=== PATIENT | female | born 1955 | race Two or more races ===

== ENCOUNTER 2017-11-25 22:30 | Emergency (ER) | payer MEDICAID, OTHER ==
[2017-11-25 22:39] VITALS: BP 122/73
--- NOTE | 2017-11-25 23:29 | RADIOLOGY REPORT (SQ) ---
EXAM DESCRIPTION: XR ANKLE 2 VIEWS COMPLETED DATE/TME: 11/25/2017 00:00 CLINICAL HISTORY: 62 years Female, r ankle pain COMPARISON: None. Findings: Minimal medial malleolar osteoarthritis. Bones, joints, and soft tissues of the RIGHT XR ANKLE 3 VIEWS appear intact. IMPRESSION: No acute findings.
[2017-11-25] MEDS ORDERED: IBUPROFEN 600 MG TABLET PO ONE (23:52)
--- NOTE | 2017-11-25 23:52 | ER Document Report ---
HPI - HPI Pain Level: 4 Notes: Patient complaining of right ankle pain 2 days patient unsure of any specific injury she may have twisted it wrong. He should not reports that she is able to ambulate on the right leg however it causes her moderate discomfort. - REPRODUCTIVE Reproductive: DENIES: : Past Medical History - General Information source: Patient - Social History Smoking Status: Never Smoker Frequency of alcohol use: None Drug Abuse: None Family History: CAD, DM, Hyperlipidemia Psychiatric Medical History: Reports: Hx Anxiety, Hx Bipolar Disorder, Hx Depression, Hx Schizophrenia Past Surgical History: Reports: Hx Tonsillectomy - Immunizations Immunizations up to date: No Hx Diphtheria, Pertussis, Tetanus Vaccination: No - unknown Vertical Provider Document - CONSTITUTIONAL Notes: PHYSICAL EXAMINATION: GENERAL: Well-appearing, well-nourished and in no acute distress. HEAD: Atraumatic, normocephalic. EYES: Pupils equal round extraocular movements intact, conjunctiva are normal. ENT: Nares patent NECK: Normal range of motion LUNGS: No respiratory distress Musculoskeletal: Normal range of motion, tenderness to palpation over medial aspect of right ankle. Capillary refill less than 3 seconds, normal motor and sensation to area of pain NEUROLOGICAL: Normal speech, normal gait. PSYCH: Normal mood, normal affect. SKIN: Warm, Dry, normal turgor, no rashes or lesions noted. - INFECTION CONTROL TRAVEL OUTSIDE OF THE [place] IN LAST 30 DAYS: No Course - Re-evaluation Re-evalutation: X-ray is negative for any fracture or dislocation. Will place patient in a air cast for comfort, ice and elevate. Patient offered crutches, patient declined as she states that she is very clumsy. It was noted that patient was tachycardic on arrival, patient does report that she has anxiety, manual pulse rate checked by provider and is 80. Nursing staff asked to update patient's vital signs prior to discharge home. - Vital Signs Vital signs: Temp Pulse Resp BP Pulse Ox 98.8 F 123 H 18 122/73 92 11/25/17 22:36 11/25/17 22:36 11/25/17 22:36 11/25/17 22:36 11/25/17 22:36 Discharge - Discharge Clinical Impression: Contusion of ankle, right Condition: Stable Disposition: HOME, SELF-CARE Additional Instructions: Contusion Your injury has resulted in a contusion -- a crushing of the deep tissues. No injury to important structures was detected during the physician's exam. Contusions vary in the amount of pain they cause, and in the length of time required for healing. Typically, the area will become bruised, and will remain painful to touch for two or three weeks. However, most patients are back to working and playing within a few days. After the initial period of rest and cold-packs, your symptoms (together with the doctor's recommendations) will determine how rapidly you can get back to full activity. Usually this means "do what feels okay, but don't do things that hurt." If re-examination was recommended, it's important to follow up as instructed. Call the doctor or return any time if pain increases, if swelling becomes severe, if you develop numbness or weakness in an injured extremity, or if any other alarming symptoms occur. Ankle Stirrup Splint You are to use an ankle brace called a stirrup splint. This type of brace allows you to place greater stresses on the ankle without risk of re-injury, and is often used for more severe ankle injuries such as avulsion fractures and ligament ruptures. The splint can be worn over a sock or tape. For proper support, wear the splint with a shoe over it. It's important that the splint fit properly. Adjust the heel tension, if needed. If your splint has air bladders, peel back the bottom of each air bladder, then move the Velcro attachment of the heel strap up or down. Air bladder pressure can be adjusted by pulling up the valve at the top, threading the air tube down into the main bladder, then blowing air into the bladder or squeezing it out. The two sides of the stirrup can be moved forward or back on your ankle by changing the attachment of the main straps. If you are unable to use the ankle comfortably in the splint, return for re -evaluation. Ankle Exercise Program To restore the ankle to normal, it's important to strengthen the muscles that support it -- especially those that lift the foot upward. Good muscle tone will keep stress off the injury while it heals. EARLY - Once the doctor allows you to walk on the ankle, you can begin. Lean your back against a wall. Standing on your heels, lift the balls of both feet up, hold a second, then back down. Work up to 100 repetitions. Next, using the wall for balance, stand on one foot. Lift the heel up, then down. Work up to 100 repetitions for each foot. BALANCE TRAINING - To retrain the ankle to react to "tipping", stand on one foot for two minutes. Go from flat-footed to standing on the toes and back again slowly. Repeat with the other foot. LATER - When your ankle has regained full motion and you're walking pain- free, begin exercise against resistance. In a sitting position, pull the top of the foot towards you against resistance 20 times. Use either elastic material or a weight attached to the toes. Swing the knee so the foot is to the side of the body, and repeat. Epsom Salt Soaks Soak the area in a container of warm epsom salt water. If you can't get the area into a bucket or quijano, use a folded towel soaked in the epsom salt solution and apply to the area. Use clean hot tap water (about the temperature of a very warm bath), mixing in about one (1) teaspoon for every pint of water. Two gallon --> 16 teaspoons Epsom Salts One gallon --> 8 teaspoons Epsom Salts Two quarts --> 4 teaspoons Epsom Salts One quart --> 2 teaspoons Epsom Salts Soak the area for about 20 minutes while gently moving it around in the water. Repeat this four (4) times a day. Please take ibuprofen 600 mg every 6 hours for pain. Ice and elevate to the area of discomfort. This will help reduce the inflammation and swelling. You may also want to try Epsom salt soaks. Follow-up with your primary care provider in the next 3-5 days for a follow-up. Referrals: TERRELL MALDONADO MD [NO LOCAL MD] - Follow up as needed
== END 2017-11-26 00:05 | disposition home or self-care (01) ==
LOC: ER 22:30
DX: S90.01XA Contusion of right ankle, initial encounter (principal); M25.571 Pain in right ankle and joints of right foot; X58.XXXA Exposure to other specified factors, initial encounter; F41.9 Anxiety disorder, unspecified
CPT/HCPCS: 99283; 73610; L1902; J3490

== ENCOUNTER 2020-01-27 14:19 | Emergency (ER) | payer MEDICAID ==
--- NOTE | 2020-01-27 15:14 | ER Document Report ---
ED Medical Screen (RME) - General Chief Complaint: Abdominal Pain Stated Complaint: ABDOMINAL PAIN Time Seen by Provider: 01/27/20 15:08 Mode of Arrival: Ambulatory Information source: Patient Notes: HPI; 64-year-old female presents to the emergency room complaining some diffuse generalized cramping abdominal pain for the past 3 days. She denies any nausea, no vomiting, no diarrhea, no urinary symptoms. No fevers. She denies any recent travel. She denies any COVID-19 exposure. No medications for her symptoms. PE: Alert and oriented x3. Lungs: Clear to auscultation without rales, rhonchi, wheezes. Heart: Tachycardic without murmurs, rubs, gallops. I have greeted and performed a rapid initial assessment of this patient. A comprehensive ED assessment and evaluation of the patient, analysis of test results and completion of the medical decision making process will be conducted by additional ED providers. I have specifically instructed the patient or family members with the patient to immediately return to any nursing staff should anything change in the patient's condition or with their chief complaint. TRAVEL OUTSIDE OF THE [place] IN LAST 30 DAYS: No - Related Data Allergies/Adverse Reactions: No Known Allergies Allergy (Verified 01/27/20 15:07) Past Medical History Renal/ Medical History: Denies: Hx Peritoneal Dialysis Psychiatric Medical History: Reports: Hx Anxiety, Hx Bipolar Disorder, Hx Depression, Hx Schizophrenia Past Surgical History: Reports: Hx Tonsillectomy - Immunizations Immunizations up to date: No Hx Diphtheria, Pertussis, Tetanus Vaccination: No - unknown Physical Exam - Vital signs Vitals: Temp Pulse Resp BP Pulse Ox 98.8 F 109 H 16 106/72 97 01/27/20 14:34 01/27/20 14:34 01/27/20 14:34 01/27/20 14:34 01/27/20 14:34 Course - Vital Signs Vital signs: Temp Pulse Resp BP Pulse Ox 98.8 F 109 H 16 106/72 97 01/27/20 14:34 01/27/20 14:34 01/27/20 14:34 01/27/20 14:34 01/27/20 14:34
[2020-01-27 15:45] LABS: ABSOLUTE BASOPHILS # (AUTO) 0.1 10^3/uL (0.0-0.2); ABSOLUTE EOSINOPHILS # (AUTO) 0.1 10^3/uL (0.0-0.6); ABSOLUTE LYMPHOCYTES (AUTO) 2.7 10^3/uL (0.5-4.7); ABSOLUTE MONOCYTES (AUTO) 0.9 10^3/uL (0.1-1.4); BASOPHILS % (AUTO) 0.7 % (0-2); EOSINOPHILS % (AUTO) 1.4 % (0-6); HEMATOCRIT 44.6 % (36.0-47.0); HEMOGLOBIN 15.1 g/dL (12.0-15.5); LYMPHOCYTES % (AUTO) 24.6 % (13-45); MEAN CORPUSCULAR HEMOGLOBIN 30.6 pg (27.0-33.4); MEAN CORPUSCULAR HGB CONC 33.8 g/dL (32.0-36.0); MEAN CORPUSCULAR VOLUME 91 fl (80-97); MONOCYTES % (AUTO) 8.4 % (3-13); PLATELET COUNT 381 10^3/uL (150-450); RED BLOOD COUNT 4.93 10^6/uL (3.72-5.28); RED CELL DISTRIBUTION WIDTH 14.8 % (11.5-14.0); SEGMENTED NEUTROPHILS % (AUTO) 64.9 % (42-78); TOTAL CELLS COUNTED % (AUTO) 100 %; WHITE BLOOD COUNT 10.9 10^3/uL (4.0-10.5)
[2020-01-27 15:47] LABS: APPEARANCE,URINE CLOUDY; BILIRUBIN,URINE NEGATIVE (NEGATIVE); COLOR,URINE AMBER; GLUCOSE, URINE NEGATIVE (NEGATIVE); KETONES,URINE TRACE mg/dL (NEGATIVE); LEUKOCYTE ESTERASE,URINE SMALL (NEGATIVE); NITRITE,URINE NEGATIVE (NEGATIVE); PROTEIN,URINE 30 mg/dL (NEGATIVE); URINE SPECIFIC GRAVITY 1.027
[2020-01-27 16:07] LABS: ALBUMIN 4.4 g/dL (3.5-5.0); ALKALINE PHOSPHATASE 69 U/L (38-126); ANION GAP 9 (5-19); ASPARTATE AMINO TRANSFERASE 19 U/L (14-36); BILIRUBIN,DIRECT 0.3 mg/dL (0.0-0.4); BILIRUBIN,TOTAL 0.6 mg/dL (0.2-1.3); BLOOD UREA NITROGEN 16 mg/dL (7-20); CALCIUM 9.8 mg/dL (8.4-10.2); CARBON DIOXIDE 24 mmol/L (22-30); CHLORIDE 104 mmol/L (98-107); GLUCOSE 100 mg/dL (75-110); POTASSIUM 4.9 mmol/L (3.6-5.0); TOTAL PROTEIN 7.7 g/dL (6.3-8.2)
--- NOTE | 2020-01-27 19:50 | ER Document Report ---
ED General - General Chief Complaint: Abdominal Pain Stated Complaint: ABDOMINAL PAIN Time Seen by Provider: 01/27/20 15:08 Primary Care Provider: RUSH MARTINEZ PA-C [Primary Care Provider] - Follow up as needed Mode of Arrival: Ambulatory Notes: Patient is a 64-year-old female with a history of hypertension, bipolar disorder, diabetes and hypothyroidism who presents to the emergency department with a chief complaint of upper abdominal pain. She adds that she was diagnosed with a hernia a few years ago on imaging of the abdomen. She states for the past 2 weeks she is been having some intermittent discomfort in the upper abdomen with some fullness. She states that she started having some decreased bowel movements. She was concerned it might of had something to do with the hernia and her daughter encouraged she come in for evaluation. She states that she had her daughter give her some laxative medications which did help her move her bowels successfully but she states it still not to the degree of regularity that she normally has. She complains of ongoing intermittent discomfort so she came for evaluation. Upon history she states that she is feeling very hungry and would like to eat something. She denies any nausea vomiting or diarrhea. No fevers or rashes. No headaches. No chest pain or shortness of breath. No urinary complaints. No recent travel or known sick contacts. TRAVEL OUTSIDE OF THE [place] IN LAST 30 DAYS: No - Related Data Allergies/Adverse Reactions: No Known Allergies Allergy (Verified 01/27/20 15:07) Past Medical History - General Information source: Patient - Social History Smoking Status: Current Every Day Smoker Family History: CAD, DM, Hyperlipidemia Renal/ Medical History: Denies: Hx Peritoneal Dialysis Psychiatric Medical History: Reports: Hx Anxiety, Hx Bipolar Disorder, Hx Depression, Hx Schizophrenia Past Surgical History: Reports: Hx Tonsillectomy - Immunizations Immunizations up to date: No Hx Diphtheria, Pertussis, Tetanus Vaccination: No - unknown Review of Systems - Review of Systems Constitutional: denies: Fever EENT: denies: Blurred vision Cardiovascular: denies: Dizziness Respiratory: denies: Sputum Gastrointestinal: denies: Blood streaked bowels Genitourinary: denies: Flank pain Female Genitourinary: denies: Vaginal discharge Musculoskeletal: denies: Joint swelling Skin: denies: Lesions Hematologic/Lymphatic: denies: Easy bleeding Neurological/Psychological: denies: Paralysis Physical Exam - Vital signs Vitals: Temp Pulse Resp BP Pulse Ox 98.8 F 109 H 16 106/72 97 01/27/20 14:34 01/27/20 14:34 01/27/20 14:34 01/27/20 14:34 01/27/20 14:34 - General General appearance: Appears well, Alert In distress: None - HEENT Head: Normocephalic, Atraumatic Eyes: Normal Conjunctiva: Normal Pupils: PERRL Neck: Normal, Supple - Respiratory Respiratory status: No respiratory distress Chest status: Nontender Breath sounds: Normal Chest palpation: Normal - Cardiovascular Rhythm: Regular Heart sounds: Normal auscultation - Abdominal Inspection: Normal Distension: No distension Bowel sounds: Normal Tenderness: Tender - Slight tenderness to deep palpation of the epigastric region midline. There is a palpable ventral wall hernia proximal to the umbilicus. No wall defect palpated due to body habitus. Unable to determine status of herniation - Neurological Neuro grossly intact: Yes Cognition: Normal Orientation: AAOx4 - Psychological Associated symptoms: Normal affect, Normal mood - Skin Skin Temperature: Warm Skin Moisture: Dry Skin Color: Normal Course - Re-evaluation Re-evalutation: 01/27/20 21:10 CT scan showing an unchanged large diaphragmatic hernia with herniation of the stomach and part of the pancreas into the thoracic cavity per radiologist. Will refer patient to general surgery for discussion of repair. Counseled her at length regarding the importance of outpatient follow-up and advised she return here or any ER immediately with any new, persistent or worsening symptoms. She verbalized understood and agreed. - Vital Signs Vital signs: Temp Pulse Resp BP Pulse Ox 98.0 F 92 18 137/77 H 97 01/27/20 20:56 01/27/20 20:56 01/27/20 20:56 01/27/20 20:56 01/27/20 20:56 - Laboratory Result Diagrams: 01/27/20 15:25 01/27/20 15:25 Laboratory results interpreted by me: 01/27/20 01/27/20 01/27/20 15:25 15:25 15:25 WBC 10.9 H RDW 14.8 H Sodium 136.8 L Urine Protein 30 H Urine Ketones TRACE H Urine Urobilinogen 2.0 H Ur Leukocyte Esterase SMALL H Discharge - Discharge Clinical Impression: Diaphragmatic hernia Qualifiers: Obstruction and gangrene presence: without obstruction or gangrene Qualified Code(s): K44.9 - Diaphragmatic hernia without obstruction or gangrene Condition: Stable Disposition: HOME, SELF-CARE Instructions: Abdominal Pain ([facility]) Additional Instructions: You have a large diaphragmatic hernia. Please call the surgeon on your p aperwork to establish outpatient follow-up appointment for continued care and management. Please return here or any ER immediately with any new, persistent or worsening symptoms. Referrals: RUSH MARTINEZ PA-C [Primary Care Provider] - Follow up as needed JOE WAGNER MD [ACTIVE STAFF] - Follow up as needed
--- NOTE | 2020-01-27 20:56 | RADIOLOGY REPORT (SQ) ---
CT ABDOMEN PELVIS WITH IV CONTRAST HISTORY: Upper abdominal pain. History of hernia. COMPARISON: 01/25/2015 TECHNIQUE: CT scan of the abdomen and pelvis was performed with IV contrast. This exam was performed according to our departmental dose-optimization program, which includes automated exposure control, adjustment of the mA and/or kV according to patient size and/or use of iterative reconstruction technique. FINDINGS: Lung bases are clear without pleural or pericardial effusions. Liver, spleen, pancreas, gallbladder, adrenal glands, kidneys, and pelvic organs are normal. No hydronephrosis or urinary stones are seen. There is unchanged appearance of a large central diaphragmatic hernia with herniation of the distal pancreas and the entire stomach in the thoracic cavity. There is no small bowel obstruction. The appendix is unremarkable. No evidence of acute diverticulitis. No adenopathy, free fluid, or free air is identified. There is focal degenerative disc disease at L5-S1. No acute fracture is identified. The aorta is normal caliber and contains atherosclerotic calcifications. There is no pathologic body wall hernia. IMPRESSION: 1. No acute abdominal or pelvic findings. 2. Unchanged appearance of a large central diaphragmatic hernia with herniation of the distal pancreas and the entire stomach in the thoracic cavity
[2020-01-27 22:04] VITALS: BP 122/88
== END 2020-01-27 22:04 | disposition home or self-care (01) ==
LOC: ER 14:19
DX: K44.9 Diaphragmatic hernia without obstruction or gangrene (principal); I10 Essential (primary) hypertension; E11.9 Type 2 diabetes mellitus without complications; R19.4 Change in bowel habit; F17.200 Nicotine dependence, unspecified, uncomplicated
CPT/HCPCS: 36415; 74177; 80053; 81001; 83690; 85025; 99285